=== PATIENT | male | born 1930 | race Caucasian/White ===

== ENCOUNTER 2018-06-08 09:35 | Emergency (ER) | payer OTHER ==
[2018-06-08 09:48] VITALS: TEMP 97.4; BMI 22.2
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
[2018-06-08 10:50] VITALS: BP 130/78; PULSE 66
--- NOTE | 2018-06-08 16:05 | EKG ---
Test Reason : Blood Pressure : / mmHG Vent. Rate : 052 BPM Atrial Rate : 052 BPM P-R Int : 172 ms QRS Dur : 084 ms QT Int : 414 ms P-R-T Axes : 068 -32 016 degrees QTc Int : 385 ms SINUS BRADYCARDIA LEFT AXIS DEVIATION ABNORMAL ECG WHEN COMPARED WITH ECG OF 15-JUN-2016 15:11, NO SIGNIFICANT CHANGE WAS FOUND Confirmed by SHEELA KOROMA MD ([id number]) on 06/08/2018 4:04:48 PM Referred By: Confirmed By:SHEELA KOROMA MD
== END 2018-06-08 10:48 | disposition home or self-care (01) ==
LOC: JER 09:35
DX: Z04.1 Encounter for examination and observation following transport accident (principal); V43.52XA Car driver injured in collision with other type car in traffic accident, initial encounter; Y92.414 Local residential or business street as the place of occurrence of the external cause; Y93.89 Activity, other specified; Y99.8 Other external cause status; I10 Essential (primary) hypertension; E78.00 Pure hypercholesterolemia, unspecified; Z90.5 Acquired absence of kidney; Z85.528 Personal history of other malignant neoplasm of kidney
CPT/HCPCS: 82962; 93005; 93010; 99282-25